=== PATIENT | male | born 1995 | race Two or more races ===

== ENCOUNTER 2017-09-24 19:24 | Emergency (ER) | payer MEDICAID ==
[~2017-09-24] VITALS: Ht 167.6 cm; Wt 59.0 kg
[2017-09-24 23:45] VITALS: BP 108/62
[2017-09-25] MEDS ORDERED: IBUPROFEN 600MG TABLET PO ONE (00:15)
== END 2017-09-25 00:40 | disposition home or self-care (01) ==
LOC: ER 19:24
DX: M54.2 Cervicalgia (principal); M25.512 Pain in left shoulder; V49.9XXA Car occupant (driver) (passenger) injured in unspecified traffic accident, initial encounter; Y93.9 Activity, unspecified; Y92.410 Unspecified street and highway as the place of occurrence of the external cause
CPT/HCPCS: 99283